=== PATIENT | female | born 1940 | race Caucasian/White ===

== ENCOUNTER 2018-05-16 06:52 | Inpatient (IN) | payer BC, MEDICARE, OTHER ==
[2018-05-16] MEDS ORDERED: GLYCOPYRROLATE 0.4 MG INJ (07:00)
[2018-05-16] MEDS ORDERED: NEOSTIGMINE 3 MG/3 ML SYRINGE (07:00)
[2018-05-16] MEDS: LACTATED RINGER'S 1,000 ML IV (08:20)
[2018-05-16] MEDS ORDERED: CEFAZOLIN 2 GM/50 ML (PMX) 50 ML IVPB (09:08)
[2018-05-16] MEDS ORDERED: FENTAnyl 50 MCG/ML VIAL ×2 (09:11→11:10)
[2018-05-16] MEDS ORDERED: MIDAZOLAM 1 MG/ML 2 ML INJ (09:11)
[2018-05-16] MEDS ORDERED: ROCURONIUM 50 MG INJ (09:11)
[2018-05-16] MEDS ORDERED: PROPOFOL 20 ML (09:11)
[2018-05-16] MEDS ORDERED: FENTAnyl 50 MCG/ML VIAL IV ×2 (09:30)
[2018-05-16] MEDS ORDERED: hydrALAzine 20 MG INJ IV (09:30)
[2018-05-16] MEDS ORDERED: LABETALOL HCL 20MG INJ IV (09:30)
[2018-05-16] MEDS ORDERED: ONDANSETRON 4 MG INJ IV ×2 (09:30→12:00)
[2018-05-16] MEDS ORDERED: OXYCODONE/ACETAMINOPHEN (5/325) TAB PO (09:30)
[2018-05-16] MEDS ORDERED: EPHEDrine SULFATE 50 MG/5 ML SYG IV (09:30)
[2018-05-16] MEDS ORDERED: MEPERIDINE 25 MG INJ IV (09:30)
[2018-05-16] MEDS ORDERED: DIPHENHYDRAMINE 50 MG INJ IV (09:30)
[2018-05-16] MEDS ORDERED: HYDROmorphONE 1 MG/5 ML IV SYRINGE IV ×3 (09:30)
[2018-05-16] MEDS ORDERED: THROMBIN 5000 UNIT VIAL (09:52)
[2018-05-16] MEDS ORDERED: GELATIN SIZE 100 SPONGE (09:52)
[2018-05-16] MEDS: POLYMYXIN/BACITRACIN 1L IRRIG (09:52)
[2018-05-16] MEDS: BUPIVACAINE 0.25% (MPF) 30 ML INJ (09:52)
[2018-05-16] MEDS ORDERED: PHENYLephrine (100 MCG/ML) 5ML SYG ×3 (10:29→11:36)
[2018-05-16] MEDS ORDERED: METOCLOPRAMIDE 10 MG INJ (10:48)
[2018-05-16] MEDS ORDERED: DEXAMETHASONE 4 MG/ML 1 ML INJ (10:48)
[2018-05-16] MEDS ORDERED: ACETAMINOPHEN 1000MG/100ML IV 100 ML (10:48)
[2018-05-16] MEDS ORDERED: ONDANSETRON 4 MG INJ (10:48)
[2018-05-16] MEDS ORDERED: EPHEDrine SULFATE 50 MG/5 ML SYG (10:57)
[2018-05-16] MEDS ORDERED: hydrALAzine 20 MG INJ (11:03)
[2018-05-16] MEDS ORDERED: LABETALOL HCL 20MG INJ (11:10)
[2018-05-16] MEDS ORDERED: PHENYLephrine 10 MG INJ (11:17)
[2018-05-16] MEDS ORDERED: DEXTROSE 5%-0.45% NACL 1,000 ML IV (11:52)
[2018-05-16] MEDS ORDERED: NACL 0.9% 3 ML SYG IV (12:00)
[2018-05-16] MEDS ORDERED: DIAZEPAM 5 MG/ML SYG IM (12:00)
[2018-05-16] MEDS ORDERED: TRIMETHOBENZAMIDE 100 MG/ML VIAL IM (12:00)
[2018-05-16] MEDS ORDERED: CEPASTAT LOZENGE MT (12:00)
[2018-05-16] MEDS ORDERED: ZOLPIDEM 5 MG TAB PO (12:00)
[2018-05-16] MEDS ORDERED: NALOXONE (0.4 MG/ML) INJ IV (12:00)
[2018-05-16] MEDS ORDERED: AL HYDROX/MG HYDROX/SIMETH 30 ML CUP PO (12:00)
[2018-05-16] MEDS ORDERED: HYDROCODONE/APAP (5/325) TAB PO (12:00)
[2018-05-16] MEDS ORDERED: DIPHENHYDRAMINE 50 MG CAP PO (12:00)
[2018-05-16] MEDS ORDERED: ACETAMINOPHEN 325 MG TAB PO (12:00)
[2018-05-16] MEDS ORDERED: BETHANECHOL 25 MG TAB PO (12:00)
[2018-05-16] MEDS ORDERED: DIAZEPAM 5 MG TAB PO (12:00)
[2018-05-16] MEDS ORDERED: PROCHLORPERAZINE 10 MG TAB PO (12:00)
[2018-05-16] MEDS ORDERED: HYDROmorphONE 0.2 MG/ML PCA (12:13)
[2018-05-16] MEDS ORDERED: CEFAZOLIN 1 GM/50 ML (PMX) 50 ML IVPB (12:14)
[2018-05-16] MEDS: FENTAnyl 50 MCG/ML VIAL IV (12:19)
[2018-05-16] MEDS: HYDROmorphONE 0.2 MG/ML PCA IV (12:20)
[2018-05-16] MEDS: CEFAZOLIN 1 GM/50 ML (PMX) 50 ML IVPB ×2 (13:03→18:01)
[2018-05-16] MEDS: SOD CHLORIDE 0.45% 1,000 ML IV ×2 (13:30→23:30)
[2018-05-16] MEDS: metFORMIN 500 MG TAB PO (18:13)
[2018-05-16] MEDS: METOPROLOL 50 MG TAB PO (18:14)
[2018-05-16] MEDS: INSULIN ASPART [NOVOLOG] 3 ML PEN SC (20:47)
[2018-05-16] MEDS: MAGNESIUM OXIDE 400 MG TAB PO (20:47)
[2018-05-16] MEDS: RANITIDINE 150 MG TAB PO (20:47)
[2018-05-16] MEDS ORDERED: GLUCOSE GEL 15 GRAM TUBE PO ×2 (21:00)
[2018-05-16] MEDS ORDERED: GLUCAGON 1 MG INJ IM (21:00)
[2018-05-16] MEDS ORDERED: GLUCOSE GEL 15 GRAM TUBE BUCCAL (21:00)
[2018-05-16] MEDS ORDERED: DEXTROSE 50% 50 ML SYRINGE IV ×2 (21:00)
[2018-05-16] MEDS ORDERED: DILTIAZEM (SR) 60 MG CAP PO ×2 (21:00)
[2018-05-16 23:47] LABS: MAGNESIUM 1.3 mg/dl (1.7-2.5)
[2018-05-16 23:47] LABS: ANION GAP 15 (8-16); BLOOD UREA NITROGEN 13 mg/dl (7-20); CALCIUM 8.9 mg/dl (8.4-10.2); CARBON DIOXIDE 30 mmol/L (21-31); CHLORIDE 96 mmol/L (97-110); CREATININE 0.59 mg/dl (0.44-1.00); GLUCOSE 166 mg/dl (70-220); POTASSIUM 3.9 mmol/L (3.5-5.1); SODIUM 137 mmol/L (135-144)
[2018-05-17] MEDS: CEFAZOLIN 1 GM/50 ML (PMX) 50 ML IVPB ×2 (00:20→06:13)
[2018-05-17] MEDS: DILTIAZEM 30 MG TAB PO ×2 (01:26→08:50)
[2018-05-17] MEDS: MAGNESIUM SULFATE 1 GM/D5W 100 ML IVPB (01:40)
[2018-05-17] MEDS: ACCUCHECK AT 2AM (Patients on SS coverage) XX (01:45)
[2018-05-17] MEDS: SOD CHLORIDE 0.45% 1,000 ML IV (04:02)
[2018-05-17 05:55] LABS: HEMOGLOBIN 13.4 g/dl (12.0-16.0)
[2018-05-17] MEDS: LEVOTHYROXINE 88 MCG TAB PO (06:13)
[2018-05-17 07:03] LABS: ANION GAP 14 (8-16); BLOOD UREA NITROGEN 11 mg/dl (7-20); CALCIUM 9.1 mg/dl (8.4-10.2); CARBON DIOXIDE 28 mmol/L (21-31); CHLORIDE 98 mmol/L (97-110); CREATININE 0.57 mg/dl (0.44-1.00); GLUCOSE 153 mg/dl (70-220); POTASSIUM 3.3 mmol/L (3.5-5.1); SODIUM 137 mmol/L (135-144)
[2018-05-17] MEDS: INSULIN ASPART [NOVOLOG] 3 ML PEN SC ×3 (07:50→17:55)
[2018-05-17] MEDS ORDERED: BETHANECHOL 25 MG TAB PO (08:00)
[2018-05-17] MEDS: metFORMIN 500 MG TAB PO ×2 (08:45→17:55)
[2018-05-17] MEDS: ASCORBIC ACID 500 MG TAB PO (08:46)
[2018-05-17] MEDS: FERROUS SULFATE (EC) 325 MG TAB PO ×2 (08:46→12:47)
[2018-05-17] MEDS: RANITIDINE 150 MG TAB PO (08:47)
[2018-05-17] MEDS: DOCUSATE SODIUM 100 MG CAP PO (08:47)
[2018-05-17] MEDS: POTASSIUM CHLORIDE (SR) 10 MEQ TAB PO ×2 (08:48→12:47)
[2018-05-17] MEDS: MAGNESIUM OXIDE 400 MG TAB PO (08:48)
[2018-05-17] MEDS: HYDROCODONE/APAP (5/325) TAB PO ×2 (08:51→13:53)
[2018-05-17 14:49] LABS: ADD UMIC YES; UR ASCORBIC ACID NEGATIVE (NEGATIVE); UR BILIRUBIN (Dip) NEGATIVE (NEGATIVE); UR BLOOD (Dip) NEGATIVE (NEGATIVE); UR CLARITY CLEAR (CLEAR); UR COLOR STRAW (YELLOW); UR GLUCOSE (Dip) NEGATIVE (NEGATIVE); UR KETONES (Dip) NEGATIVE (NEGATIVE); UR LEUKOCYTE ESTERASE (Dip) TRACE Leu/ul (NEGATIVE); UR NITRITE (Dip) NEGATIVE (NEGATIVE); UR RBC 1 /HPF (0-5); UR SPECIFIC GRAVITY (Dip) 1.003 (1.003-1.030); UR SQUAMOUS EPITHELIAL CELL FEW /HPF (FEW); UR TOTAL PROTEIN (Dip) NEGATIVE (NEGATIVE); UR UROBILINOGEN (Dip) NEGATIVE (NEGATIVE); UR WBC 4 /HPF (0-5)
[2018-05-17] MEDS: METOPROLOL 50 MG TAB PO (17:25)
[2018-05-17] MEDS ORDERED: DILTIAZEM 30 MG TAB PO (21:00)
== END 2018-05-17 18:04 | disposition home health service (06) | DRG 520 ==
LOC: REC 06:52 → MS1 13:39
PROVIDERS: Orthopaedic Surgery
PROC: 01NB0ZZ Release Lumbar Nerve, Open Approach (ICD-10-PCS; principal; 2018-05-16 09:30)
PROC: 0SB40ZZ Excision of Lumbosacral Disc, Open Approach (ICD-10-PCS; 2018-05-16 09:30)
DX: M51.17 Intervertebral disc disorders with radiculopathy, lumbosacral region (principal); M48.07 Spinal stenosis, lumbosacral region; I49.9 Cardiac arrhythmia, unspecified; I10 Essential (primary) hypertension; E78.5 Hyperlipidemia, unspecified; E03.9 Hypothyroidism, unspecified; G89.4 Chronic pain syndrome; E11.9 Type 2 diabetes mellitus without complications
CPT/HCPCS: 72020; 80048; 81001; 82962; 83735; 85014; 85018; 86850; 86900; 86901; 86920; 88304; 93005; 97116; 97530